=== PATIENT | male | born 1955 | race Caucasian/White ===

== ENCOUNTER 2016-12-05 19:52 | Emergency (ER) | payer SELFPAY ==
[~2016-12-05] VITALS: Ht 170.2 cm; Wt 82.0 kg
[2016-12-06] MEDS ORDERED: ENOXAPARIN 40MG/0.4ML SYR SUBCUT SCH
[2016-12-06] MEDS ORDERED: HYDROCODONE/ACETAMINOPHEN 5/325MG TABLET PO PRN
[2016-12-06] MEDS ORDERED: ONDANSETRON HCL 4MG/2ML VIAL IV PRN
[2016-12-06] MEDS ORDERED: ACETAMINOPHEN 325MG TABLET PO PRN
[2016-12-06] MEDS ORDERED: MORPHINE SULFATE 2 MG/ML CPJ (NOT FOR IM USE) IV PRN
[2016-12-06 00:10] LABS: CLARITY URINE CLEAR (CLEAR); COLOR URINE YELLOW (YELLOW); GLUCOSE URINE 3+ (NEGATIVE); KETONES URINE NEGATIVE (NEGATIVE); LEUKOCYTE ESTERASE URINE NEGATIVE (NEGATIVE); NITRITE URINE NEGATIVE (NEGATIVE); OCCULT BLOOD URINE NEGATIVE (NEGATIVE); PROTEIN URINE TRACE (NEGATIVE); SPECIFIC GRAVITY URINE 1.018 (1.005-1.030); UROBILINOGEN URINE 0.2 E.U./dL (0.2-1.0)
[2016-12-06 00:32] LABS: BASOPHILS % 0.9 % (0.0-2.0); EOSINOPHILS % 2.9 % (0.0-5.0); HEMOGLOBIN. 14.8 g/dL (14.0-18.0); LYMPHOCYTES % 24.1 % (20.0-50.0); MEAN CORPUSCULAR HEMOGLOBIN 28.5 pg (28.0-32.0); MEAN CORPUSCULAR VOLUME 84.7 fL (80.0-94.0); MEAN PLATELET VOLUME 7.6 fl (7.4-10.4); NEUTROPHILS % 68.1 % (40.0-76.0); PLATELET 200 x1000/uL (130-400); RED CELL DISTRIBUTION WIDTH 13.7 % (11.6-14.6)
[2016-12-06 00:38] LABS: *AMPHETAMINES SCREEN URINE NEGATIVE (NEGATIVE); *BARBITURATES SCREEN URINE NEGATIVE (NEGATIVE); *BENZODIAZEPINES SCREEN URINE NEGATIVE (NEGATIVE); *COCAINE SCREEN URINE NEGATIVE (NEGATIVE); CANNABINOID URINE SCREEN NEGATIVE (NEGATIVE); METHADONE URINE SCREEN NEGATIVE (NEGATIVE); OPIATES URINE SCREEN NEGATIVE (NEGATIVE); PHENCYCLIDINE URINE SCREEN NEGATIVE (NEGATIVE)
[2016-12-06 00:39] LABS: CHLORIDE 99 mEq/L (98-107)
[2016-12-06 00:47] LABS: CARBON DIOXIDE 24 mEq/L (21-32); ETHANOL BLOOD 182 mg/dL
[2016-12-06 06:18] VITALS: BP 123/86
[2016-12-06] MEDS ORDERED: AMLODIPINE 5MG TABLET PO SCH (09:00)
[2016-12-06] MEDS ORDERED: THIAMINE HCL 100MG TABLET PO SCH (09:00)
== END 2016-12-06 06:21 | disposition home or self-care (01) ==
LOC: ER 20:04 → SUPCPDRO 23:48 → ER 12-06 06:21
DX: F10.129 Alcohol abuse with intoxication, unspecified (principal); M25.561 Pain in right knee; R03.0 Elevated blood-pressure reading, without diagnosis of hypertension; R73.9 Hyperglycemia, unspecified
CPT/HCPCS: 36415; 73562; 80053; 80305; 81001; 83690; 85025; 99285; G0482; 81003

== ENCOUNTER 2017-08-29 21:23 | Emergency (ER) | payer SELFPAY ==
[~2017-08-29] VITALS: Ht 167.6 cm; Wt 73.0 kg
[2017-08-29] MEDS ORDERED: SODIUM CHLORIDE 0.9% 1,000 ML IV ONE (22:49)
[2017-08-30 00:02] LABS: BASOPHILS % 1.1 % (0.0-2.0); EOSINOPHILS % 4.1 % (0.0-5.0); HEMATOCRIT. 44.1 % (42.0-52.0); MEAN CORPUSCULAR HEMOGLOBIN 29.8 pg (28.0-32.0); MEAN CORPUSCULAR VOLUME 87.6 fL (80.0-94.0); MEAN PLATELET VOLUME 7.2 fl (7.4-10.4); MONOCYTES % 5.7 % (2.0-8.0); NEUTROPHILS % 60.1 % (40.0-76.0); PLATELET 225 x1000/uL (130-400); RED BLOOD CELL COUNT 5.04 mill/uL (4.7-6.1); RED CELL DISTRIBUTION WIDTH 13.4 % (11.6-14.6)
[2017-08-30 00:09] LABS: CHLORIDE 99 mEq/L (98-107)
[2017-08-30 00:13] LABS: ETHANOL BLOOD 199 mg/dL
[2017-08-30 00:16] LABS: AMMONIA 37 uMol/L (<32)
[2017-08-30 00:19] LABS: PROTHROMBIN TIME 10.1 sec (9.4-11.6)
[2017-08-30] MEDS ORDERED: SODIUM CHLORIDE 0.9% 1000ML BAG (SEPSIS BOLUS) IV NR (00:30)
[2017-08-30] MEDS ORDERED: INSULIN REGULAR (HUMULIN R) 300UNITS/3ML IV NR (00:30)
[2017-08-30 06:10] VITALS: BP 127/70
== END 2017-08-30 06:10 | disposition home or self-care (01) ==
LOC: ER 21:36
DX: T51.0X1A Toxic effect of ethanol, accidental (unintentional), initial encounter (principal); R73.9 Hyperglycemia, unspecified; R51 Headache; R10.9 Unspecified abdominal pain; F10.129 Alcohol abuse with intoxication, unspecified; R07.9 Chest pain, unspecified; Z91.14 Patient's other noncompliance with medication regimen; Y92.89 Other specified places as the place of occurrence of the external cause
CPT/HCPCS: 36415; 70450; 74176; 80053; 82010; 82140; 83605; 83690; 83880; 84443; 84484; 85025; 85610; 93005; 96361; 96374; 99285; G0482; J1815; J7030

== ENCOUNTER 2018-09-01 17:21 | Inpatient (IN) | payer MEDICAID ==
[~2018-09-01] VITALS: Ht 170.2 cm; Wt 89.8 kg
[2018-09-01 19:00] LABS: CLARITY URINE CLEAR (CLEAR); COLOR URINE YELLOW (YELLOW); KETONES URINE NEGATIVE (NEGATIVE); LEUKOCYTE ESTERASE URINE NEGATIVE (NEGATIVE); NITRITE URINE NEGATIVE (NEGATIVE); OCCULT BLOOD URINE 2+ (NEGATIVE); PROTEIN URINE 3+ (NEGATIVE); SPECIFIC GRAVITY URINE 1.013 (1.005-1.030); UROBILINOGEN URINE 0.2 E.U./dL (0.2-1.0)
[2018-09-01] MEDS ORDERED: FUROSEMIDE 40MG/4ML VIAL IV ONE (19:00)
[2018-09-01] MEDS ORDERED: ASPIRIN 81MG TABLET PO ONE (19:00)
[2018-09-01 19:15] LABS: EOSINOPHILS % 5.7 % (0.0-5.0); HEMATOCRIT. 44.1 % (42.0-52.0); HEMOGLOBIN. 14.7 g/dL (14.0-18.0); MEAN CORPUSCULAR HEMOGLOBIN 30.4 pg (28.0-32.0); MEAN CORPUSCULAR VOLUME 91.1 fL (80.0-94.0); MEAN PLATELET VOLUME 7.4 fl (7.4-10.4); MONOCYTES % 7.2 % (2.0-8.0); NEUTROPHILS % 68.1 % (40.0-76.0); PLATELET 208 x1000/uL (130-400); RED BLOOD CELL COUNT 4.84 mill/uL (4.7-6.1); RED CELL DISTRIBUTION WIDTH 14.2 % (11.6-14.6)
[2018-09-01 19:19] LABS: CHLORIDE 107 mEq/L (98-107)
[2018-09-01 19:23] LABS: ETHANOL BLOOD < 10 mg/dL
[2018-09-01 19:36] LABS: PARTIAL THROMBOPLASTIN TIME 29.7 sec (23.4-31.0); PROTHROMBIN TIME 10.8 sec (9.6-11.0)
[2018-09-01] MEDS ORDERED: HYDRALAZINE HCL 50MG TABLET PO NR (22:00)
[2018-09-01] MEDS ORDERED: CLONIDINE 0.1MG TABLET PO PRN (22:15)
[2018-09-01] MEDS ORDERED: MORPHINE SULFATE 2 MG/ML CPJ (NOT FOR IM USE) IV PRN (22:15)
[2018-09-01] MEDS ORDERED: GUAIFENESIN 200MG/10ML SUGAR FREE UDC PO PRN (22:15)
[2018-09-01] MEDS ORDERED: ONDANSETRON HCL 4MG/2ML INJ IV PRN (22:15)
[2018-09-01] MEDS ORDERED: DOCUSATE SODIUM 100MG CAPSULE PO PRN (22:15)
[2018-09-01] MEDS ORDERED: ACETAMINOPHEN 325MG TABLET PO PRN (22:15)
[2018-09-01] MEDS ORDERED: HYDROCODONE/ACETAMINOPHEN 5/325MG TABLET PO PRN (22:15)
[2018-09-01 23:00] VITALS: BP 183/101
[2018-09-01] MEDS: FUROSEMIDE 40MG/4ML VIAL IV SCH (23:40)
[2018-09-01] MEDS: LISINOPRIL 10MG TABLET PO SCH (23:41)
[2018-09-01] MEDS: AMLODIPINE 10MG TABLET PO SCH (23:41)
[2018-09-02] VITALS: BP 168/102
[2018-09-02 04:00] VITALS: BP 138/77
[2018-09-02 06:23] LABS: BASOPHILS % 1.9 % (0.0-2.0); EOSINOPHILS % 8.1 % (0.0-5.0); HEMATOCRIT. 40.6 % (42.0-52.0); HEMOGLOBIN. 13.5 g/dL (14.0-18.0); LYMPHOCYTES % 18.7 % (20.0-50.0); MEAN CORPUSCULAR HEMOGLOBIN 29.9 pg (28.0-32.0); MEAN CORPUSCULAR VOLUME 90.1 fL (80.0-94.0); MEAN PLATELET VOLUME 7.3 fl (7.4-10.4); MONOCYTES % 8.4 % (2.0-8.0); NEUTROPHILS % 62.9 % (40.0-76.0); PLATELET 211 x1000/uL (130-400); RED BLOOD CELL COUNT 4.51 mill/uL (4.7-6.1); RED CELL DISTRIBUTION WIDTH 14.6 % (11.6-14.6)
[2018-09-02 06:42] LABS: CHLORIDE 108 mEq/L (98-107)
[2018-09-02 06:54] LABS: HDL CHOLESTEROL 57 mg/dL (40-59)
[2018-09-02 06:55] LABS: LDL CHOLESTEROL 46 mg/dL (5-100)
[2018-09-02] MEDS: BLOOD SUGAR DIAGNOSTIC STRIP TEST SCH ×4 (07:37→20:41)
[2018-09-02 08:00] VITALS: BP 168/99
[2018-09-02] MEDS: FUROSEMIDE 40MG/4ML VIAL IV SCH ×2 (09:04→16:53)
[2018-09-02] MEDS: AMLODIPINE 10MG TABLET PO SCH (09:05)
[2018-09-02] MEDS: ASPIRIN 81MG EC TABLET PO SCH (09:05)
[2018-09-02] MEDS: LISINOPRIL 10MG TABLET PO SCH (09:05)
[2018-09-02] MEDS: ENOXAPARIN 40MG/0.4ML SYR SUBCUT SCH (09:06)
[2018-09-02 12:00] VITALS: BP 132/73
[2018-09-02] MEDS: POTASSIUM CHLORIDE 20MEQ TABLET SR PO SCH ×2 (12:43→20:20)
[2018-09-02 16:00] VITALS: BP 154/99
[2018-09-02 20:00] VITALS: BP 135/85
[2018-09-02] MEDS: CARVEDILOL 6.25 MG TABLET PO SCH (20:19)
[2018-09-03] VITALS: BP 130/83
[2018-09-03 04:00] VITALS: BP 153/96
[2018-09-03] MEDS: BLOOD SUGAR DIAGNOSTIC STRIP TEST SCH ×4 (06:50→20:47)
[2018-09-03 07:39] VITALS: BP 156/101
[2018-09-03] MEDS: FUROSEMIDE 40MG/4ML VIAL IV SCH ×2 (09:11→17:26)
[2018-09-03] MEDS: POTASSIUM CHLORIDE 20MEQ TABLET SR PO SCH ×2 (09:11→17:26)
[2018-09-03] MEDS: LISINOPRIL 10MG TABLET PO SCH (09:11)
[2018-09-03] MEDS: ASPIRIN 81MG EC TABLET PO SCH (09:12)
[2018-09-03] MEDS: ENOXAPARIN 40MG/0.4ML SYR SUBCUT SCH (09:12)
[2018-09-03] MEDS: CARVEDILOL 6.25 MG TABLET PO SCH ×2 (09:12→20:51)
[2018-09-03] MEDS: AMLODIPINE 10MG TABLET PO SCH (09:12)
[2018-09-03 11:52] VITALS: BP 131/86
[2018-09-03] MEDS ORDERED: DEXTROSE 50% WATER 50ML SYRINGE IV PRN (12:00)
[2018-09-03] MEDS ORDERED: BLOOD SUGAR DIAGNOSTIC STRIP TEST SCH (12:10)
[2018-09-03] MEDS: INSULIN LISPRO 100 UNITS/ML SUBCUT SCH ×3 (12:47→20:53)
[2018-09-03 16:00] VITALS: BP 142/95
[2018-09-03 20:00] VITALS: BP 150/92
[2018-09-04] VITALS: BP 130/88
[2018-09-04 04:00] VITALS: BP_SYST 131; BP_SYST 151; BP_DIAS 85; BP_DIAS 92
[2018-09-04] MEDS: BLOOD SUGAR DIAGNOSTIC STRIP TEST SCH ×2 (06:14→12:10)
[2018-09-04] MEDS: INSULIN LISPRO 100 UNITS/ML SUBCUT SCH ×2 (06:14→12:15)
[2018-09-04 07:54] LABS: BASOPHILS % 1.8 % (0.0-2.0); EOSINOPHILS % 9.6 % (0.0-5.0); HEMATOCRIT. 41.2 % (42.0-52.0); HEMOGLOBIN. 14.1 g/dL (14.0-18.0); LYMPHOCYTES % 20.3 % (20.0-50.0); MEAN CORPUSCULAR HEMOGLOBIN 30.7 pg (28.0-32.0); MEAN CORPUSCULAR VOLUME 89.4 fL (80.0-94.0); MEAN PLATELET VOLUME 7.4 fl (7.4-10.4); MONOCYTES % 7.6 % (2.0-8.0); NEUTROPHILS % 60.7 % (40.0-76.0); PLATELET 215 x1000/uL (130-400); RED BLOOD CELL COUNT 4.61 mill/uL (4.7-6.1); RED CELL DISTRIBUTION WIDTH 14.3 % (11.6-14.6)
[2018-09-04 08:00] VITALS: BP 158/93
[2018-09-04] MEDS: ENOXAPARIN 40MG/0.4ML SYR SUBCUT SCH (08:56)
[2018-09-04] MEDS: CARVEDILOL 6.25 MG TABLET PO SCH (08:56)
[2018-09-04] MEDS: LISINOPRIL 10MG TABLET PO SCH (08:56)
[2018-09-04] MEDS: POTASSIUM CHLORIDE 20MEQ TABLET SR PO SCH (08:56)
[2018-09-04] MEDS: FUROSEMIDE 40MG/4ML VIAL IV SCH (08:56)
[2018-09-04 09:01] LABS: CHLORIDE 105 mEq/L (98-107)
[2018-09-04] MEDS: AMLODIPINE 10MG TABLET PO SCH (09:01)
[2018-09-04] MEDS: ASPIRIN 81MG EC TABLET PO SCH (09:01)
[2018-09-04 12:00] VITALS: BP 132/88
[2018-09-04 12:40] VITALS: BP 132/88
[2018-09-04 20:00] VITALS: BP 99/68
== END 2018-09-04 13:45 | disposition home or self-care (01) | DRG 194 ==
LOC: ER 17:21 → 8WST 21:01 → EDBEDREQ 21:07 → EDBEDREQTM 21:07 → ENRESERV 21:26 → SUPCPDRO 22:00
PROVIDERS: ADMIT Hospitalist; ATTEND Hospitalist
DX: I11.0 Hypertensive heart disease with heart failure (principal); E44.0 Moderate protein-calorie malnutrition; E83.51 Hypocalcemia; E11.9 Type 2 diabetes mellitus without complications; I50.23 Acute on chronic systolic (congestive) heart failure; E78.5 Hyperlipidemia, unspecified; I25.10 Atherosclerotic heart disease of native coronary artery without angina pectoris; Z79.84 Long term (current) use of oral hypoglycemic drugs
CPT/HCPCS: 36415; 71045; 80061; 80320; 82962; 83605; 83880; 84484; 93005; 93306; 93970; 96374; 99285; J1650; J1815; J1940; G0480

== ENCOUNTER 2018-09-12 15:08 | Emergency (ER) | payer MEDICAID ==
[~2018-09-12] VITALS: Ht 170.2 cm; Wt 83.0 kg
[2018-09-12] MEDS ORDERED: BUMETANIDE 1MG/4ML VIAL IV ONE (16:30)
[2018-09-12 16:52] LABS: BASOPHILS % 1.4 % (0.0-2.0); CHLORIDE 110 mEq/L (98-107); EOSINOPHILS % 7.5 % (0.0-5.0); HEMATOCRIT. 39.8 % (42.0-52.0); HEMOGLOBIN. 13.6 g/dL (14.0-18.0); LYMPHOCYTES % 20.6 % (20.0-50.0); MEAN CORPUSCULAR HEMOGLOBIN 30.7 pg (28.0-32.0); MEAN CORPUSCULAR VOLUME 90.1 fL (80.0-94.0); MEAN PLATELET VOLUME 8.2 fl (7.4-10.4); MONOCYTES % 7.4 % (2.0-8.0); NEUTROPHILS % 63.1 % (40.0-76.0); PLATELET 191 x1000/uL (130-400); RED BLOOD CELL COUNT 4.41 mill/uL (4.7-6.1); RED CELL DISTRIBUTION WIDTH 14.3 % (11.6-14.6)
[2018-09-12 22:05] VITALS: BP 136/76
== END 2018-09-12 22:07 | disposition home or self-care (01) ==
LOC: ER 15:28
DX: I50.9 Heart failure, unspecified (principal); D64.9 Anemia, unspecified; I45.10 Unspecified right bundle-branch block; E11.9 Type 2 diabetes mellitus without complications
CPT/HCPCS: 36415; 71045; 80053; 83880; 84484; 85025; 93005; 96374; 99284; J3490

== ENCOUNTER 2018-12-13 07:03 | Emergency (ER) | payer MEDICAID ==
[~2018-12-13] VITALS: Ht 170.2 cm; Wt 81.1 kg
[2018-12-13] MEDS ORDERED: MORPHINE SULFATE 4 MG/ML CPJ (NOT FOR IM USE) IV STA (08:30)
[2018-12-13] MEDS ORDERED: LABETALOL HCL 20MG/4ML CARPUJECT IV ONE (08:30)
[2018-12-13] MEDS ORDERED: LABETALOL 5MG/ML SYR 20 MG/4 ML SYRINGE IV ONE (09:15)
[2018-12-13 09:37] LABS: CHLORIDE 106 mEq/L (98-107)
[2018-12-13 09:39] LABS: BASOPHILS % 1.1 % (0.0-2.0); EOSINOPHILS % 3.5 % (0.0-5.0); HEMATOCRIT. 45.3 % (42.0-52.0); HEMOGLOBIN. 15.9 g/dL (14.0-18.0); LYMPHOCYTES % 11.3 % (20.0-50.0); MEAN CORPUSCULAR HEMOGLOBIN 31.8 pg (28.0-32.0); MEAN CORPUSCULAR VOLUME 90.6 fL (80.0-94.0); MEAN PLATELET VOLUME 7.1 fl (7.4-10.4); MONOCYTES % 4.6 % (2.0-8.0); NEUTROPHILS % 79.5 % (40.0-76.0); PLATELET 258 x1000/uL (130-400); RED CELL DISTRIBUTION WIDTH 14.1 % (11.6-14.6)
[2018-12-13 09:41] LABS: PARTIAL THROMBOPLASTIN TIME 29.4 sec (23.4-31.0); PROTHROMBIN TIME 10.1 sec (9.6-11.0)
[2018-12-13 09:44] LABS: ETHANOL BLOOD < 10 mg/dL
[2018-12-13 10:12] LABS: *AMPHETAMINES SCREEN URINE PRESUMTIVE POSITIVE (NEGATIVE); *BARBITURATES SCREEN URINE NEGATIVE (NEGATIVE); *BENZODIAZEPINES SCREEN URINE NEGATIVE (NEGATIVE); *COCAINE SCREEN URINE NEGATIVE (NEGATIVE); CANNABINOID URINE SCREEN NEGATIVE (NEGATIVE); METHADONE URINE SCREEN NEGATIVE (NEGATIVE); OPIATES URINE SCREEN NEGATIVE (NEGATIVE); PHENCYCLIDINE URINE SCREEN NEGATIVE (NEGATIVE)
[2018-12-13 12:46] VITALS: BP 131/89
== END 2018-12-13 13:14 | disposition home or self-care (01) ==
LOC: ER 07:39 → EDBEDREQ 10:00 → ER 13:14 → CANBEDREQ 18:46
DX: R51 Headache (principal); R79.89 Other specified abnormal findings of blood chemistry; I10 Essential (primary) hypertension; E11.9 Type 2 diabetes mellitus without complications; F15.10 Other stimulant abuse, uncomplicated
CPT/HCPCS: 36415; 70450; 71045; 80053; 80305; 80320; 83880; 84484; 85025; 85610; 85730; 93005; 96374; 96375; 99284; J2270; J3490; G0480

== ENCOUNTER 2019-01-23 16:23 | Inpatient (IN) | payer MEDICAID ==
[~2019-01-23] VITALS: Ht 170.2 cm; Wt 82.6 kg
[2019-01-23 17:33] LABS: BASOPHILS % 0.8 % (0.0-2.0); EOSINOPHILS % 7.1 % (0.0-5.0); HEMATOCRIT. 44.4 % (42.0-52.0); HEMOGLOBIN. 15.1 g/dL (14.0-18.0); LYMPHOCYTES % 13.9 % (20.0-50.0); MEAN CORPUSCULAR HEMOGLOBIN 30.9 pg (28.0-32.0); MEAN CORPUSCULAR VOLUME 90.8 fL (80.0-94.0); MEAN PLATELET VOLUME 7.6 fl (7.4-10.4); MONOCYTES % 5.3 % (2.0-8.0); NEUTROPHILS % 72.9 % (40.0-76.0); PLATELET 270 x1000/uL (130-400); RED CELL DISTRIBUTION WIDTH 13.4 % (11.6-14.6)
[2019-01-23 17:40] LABS: CHLORIDE 104 mEq/L (98-107)
[2019-01-23] MEDS ORDERED: IOHEXOL-350 100 ML BOTTLE ONE (19:16)
[2019-01-23] MEDS ORDERED: HEPARIN 5000 UNITS/ML VIAL IV ONE (20:00)
[2019-01-23] MEDS ORDERED: HEPARIN 25,000 UNITS PREMIX 500 ML IV ONE (20:00)
[2019-01-23] MEDS ORDERED: ASPIRIN 81MG TABLET PO ONE (20:00)
[2019-01-23 20:52] LABS: PARTIAL THROMBOPLASTIN TIME 27.5 sec (23.4-31.0); PROTHROMBIN TIME 10.4 sec (9.6-11.0)
[2019-01-23] MEDS ORDERED: HEPARIN BOLUS PRN aPTT <36 IV (23:30)
[2019-01-23] MEDS ORDERED: HEPARIN BOLUS PRN aPTT 37-44 IV (23:30)
[2019-01-24] VITALS (12 sets, daily range): BP systolic 124–172; BP diastolic 69–126
[2019-01-24] MEDS ORDERED: ONDANSETRON HCL 4MG/2ML INJ IV PRN (01:15)
[2019-01-24] MEDS ORDERED: DEXTROSE 50% WATER 50ML SYRINGE IV PRN (01:15)
[2019-01-24] MEDS ORDERED: HYDRALAZINE 20MG/ML VIAL IV PRN (01:15)
[2019-01-24] MEDS ORDERED: ACETAMINOPHEN 325MG TABLET PO PRN (01:15)
[2019-01-24] MEDS ORDERED: ZOLPIDEM TARTRATE 5MG TABLET PO PRN (01:15)
[2019-01-24] MEDS ORDERED: HYDROCODONE/ACETAMINOPHEN 5/325MG TABLET PO PRN (01:15)
[2019-01-24] MEDS ORDERED: HEPARIN 5000 UNITS/ML VIAL IV PRN ×2 (02:00)
[2019-01-24] MEDS ORDERED: HEPARIN 5000 UNITS/ML VIAL IV SCH (02:00)
[2019-01-24] MEDS ORDERED: HEPARIN 25,000 UNITS PREMIX 500 ML IV PRN (02:00)
[2019-01-24] MEDS ORDERED: BUME2TAB7 MT (03:45)
[2019-01-24] MEDS ORDERED: CARV6.2548 MT (03:48)
[2019-01-24] MEDS ORDERED: LISI-604 MT (03:48)
[2019-01-24] MEDS ORDERED: ENAL5TAB MT (03:48)
[2019-01-24] MEDS ORDERED: ASPI-1158 MT (03:50)
[2019-01-24] MEDS ORDERED: METF-416 MT (03:50)
[2019-01-24] MEDS ORDERED: CARV3.1242 MT (04:15)
[2019-01-24 05:51] LABS: CHLORIDE 107 mEq/L (98-107)
[2019-01-24 05:54] LABS: HEMATOCRIT 37.3 % (42.0-52.0); HEMOGLOBIN 12.9 g/dL (14.0-18.0); MEAN CORPUSCULAR HEMOGLOBIN 31.2 pg (28.0-32.0); PLATELET 240 x1000/uL (130-400); RED BLOOD CELL COUNT 4.14 mill/uL (4.7-6.1); RED CELL DISTRIBUTION WIDTH 13.1 % (11.6-14.6)
[2019-01-24 05:57] LABS: CREATINE KINASE 140 IU/L (39-308); LDL CHOLESTEROL 64 mg/dL (5-100)
[2019-01-24] MEDS: BLOOD SUGAR DIAGNOSTIC STRIP TEST SCH ×4 (05:57→21:00)
[2019-01-24] MEDS: INSULIN LISPRO 100 UNITS/ML SUBCUT SCH ×4 (05:57→21:34)
[2019-01-24 05:59] LABS: HDL CHOLESTEROL 54 mg/dL (40-59)
[2019-01-24] MEDS ORDERED: POTASSIUM CHLORIDE 20MEQ TABLET SR PO NR ×2 (07:15→09:00)
[2019-01-24] MEDS ORDERED: HEPARIN 25,000 UNITS PREMIX 500 ML IV SCH ×2 (08:00)
[2019-01-24] MEDS ORDERED: HEPARIN BOLUS PRN aPTT 37-44 IV (08:00)
[2019-01-24] MEDS ORDERED: HEPARIN BOLUS PRN aPTT <36 IV (08:00)
[2019-01-24] MEDS ORDERED: INSULIN LISPRO 100 UNITS/ML SUBCUT SCH (08:20)
[2019-01-24] MEDS ORDERED: BLOOD SUGAR DIAGNOSTIC STRIP TEST SCH (09:00)
[2019-01-24] MEDS: FUROSEMIDE 40MG/4ML VIAL IVP SCH ×2 (09:24→21:21)
[2019-01-24] MEDS: LISINOPRIL 10MG TABLET PO SCH (09:25)
[2019-01-24] MEDS ORDERED: MAGNESIUM 4 G PREMIX 100 ML IV NR (10:00)
[2019-01-24 10:05] LABS: PHOSPHORUS 3.6 mg/dL (2.5-4.9)
[2019-01-24] MEDS: ENOXAPARIN 40MG/0.4ML SYR SUBCUT SCH (12:36)
[2019-01-24 13:44] LABS: BG BASE EXCESS -0.7 mmol/L (-2.0-2.0); BG CARBOXYHEMOGLOBIN 1.1 % (0.5-1.5); BG DEOXYHEMOGLOBIN 5.5 % (0.0-5.0); BG FRACTION INSPIRED OXYGEN 21; BG HCO3 ACT 23.1 mmol/L (22.0-26.0); BG METHEMOGLOBIN 0.2 % (0.0-1.5); BG OXYGEN SATURATION 94.4 % (92.0-98.5); BG OXYHEMOGLOBIN 93.2 % (94.0-97.0); BG PCO2 35.6 mmHg (35.0-45.0); BG PO2 74.9 mmHg (75.0-100.0); BG SAMPLE SITE LEFT RADIAL; BG TOTAL HEMOGLOBIN 14.6 g/dL (12.0-18.0); BG VENT MODE ROOM AIR
[2019-01-24 17:13] LABS: CREATINE KINASE MB FRACTION 3.2 ng/mL (0.5-3.6)
[2019-01-24] MEDS: CLONIDINE 0.1MG TABLET PO PRN (18:08)
[2019-01-24] MEDS: CARVEDILOL 3.125 MG TABLET PO SCH (21:22)
[2019-01-24] MEDS: INSULIN GLARGINE UD 100 UNITS/ML SYR SUBCUT SCH (21:35)
[2019-01-25] VITALS (11 sets, daily range): BP systolic 101–166; BP diastolic 65–106
[2019-01-25 00:20] LABS: *AMPHETAMINES SCREEN URINE NEGATIVE (NEGATIVE); *BARBITURATES SCREEN URINE NEGATIVE (NEGATIVE); *BENZODIAZEPINES SCREEN URINE NEGATIVE (NEGATIVE); *COCAINE SCREEN URINE NEGATIVE (NEGATIVE)
[2019-01-25 00:22] LABS: CANNABINOID URINE SCREEN NEGATIVE (NEGATIVE); METHADONE URINE SCREEN NEGATIVE (NEGATIVE); OPIATES URINE SCREEN NEGATIVE (NEGATIVE); PHENCYCLIDINE URINE SCREEN NEGATIVE (NEGATIVE)
[2019-01-25] MEDS: CLONIDINE 0.1MG TABLET PO PRN (04:19)
[2019-01-25 06:05] LABS: BASOPHILS % 1.2 % (0.0-2.0); EOSINOPHILS % 7.4 % (0.0-5.0); HEMATOCRIT. 36.6 % (42.0-52.0); HEMOGLOBIN. 12.5 g/dL (14.0-18.0); MEAN CORPUSCULAR VOLUME 90.7 fL (80.0-94.0); MEAN PLATELET VOLUME 7.4 fl (7.4-10.4); MONOCYTES % 7.8 % (2.0-8.0); NEUTROPHILS % 69.6 % (40.0-76.0); PLATELET 235 x1000/uL (130-400); RED BLOOD CELL COUNT 4.04 mill/uL (4.7-6.1)
[2019-01-25] MEDS: BLOOD SUGAR DIAGNOSTIC STRIP TEST SCH ×4 (06:50→20:21)
[2019-01-25] MEDS: INSULIN LISPRO 100 UNITS/ML SUBCUT SCH ×4 (06:57→21:25)
[2019-01-25] MEDS: FUROSEMIDE 40MG/4ML VIAL IVP SCH (09:45)
[2019-01-25] MEDS: LISINOPRIL 10MG TABLET PO SCH (09:45)
[2019-01-25] MEDS: CARVEDILOL 3.125 MG TABLET PO SCH ×2 (09:45→21:28)
[2019-01-25] MEDS ORDERED: SODIUM BICARBONATE 4% (2.4MEQ) 5ML VIAL IV ONE (11:29)
[2019-01-25] MEDS: ENOXAPARIN 40MG/0.4ML SYR SUBCUT SCH (12:00)
[2019-01-25] MEDS ORDERED: REGADENOSON 0.4 MG/5 ML IV NR (14:45)
[2019-01-25] MEDS ORDERED: IPRATROPIUM/ALBUTEROL 0.5-3(2.5)MG/3ML NEB HHN PRN (16:30)
[2019-01-25] MEDS: INSULIN GLARGINE UD 100 UNITS/ML SYR SUBCUT SCH (21:24)
[2019-01-26] VITALS (9 sets, daily range): BP systolic 100–170; BP diastolic 47–109
[2019-01-26] MEDS: INSULIN LISPRO 100 UNITS/ML SUBCUT SCH ×2 (06:02→11:31)
[2019-01-26] MEDS: BLOOD SUGAR DIAGNOSTIC STRIP TEST SCH ×2 (06:02→11:23)
[2019-01-26 07:38] LABS: BASOPHILS % 1.1 % (0.0-2.0); EOSINOPHILS % 6.8 % (0.0-5.0); HEMATOCRIT. 38.7 % (42.0-52.0); HEMOGLOBIN. 13.2 g/dL (14.0-18.0); LYMPHOCYTES % 14.1 % (20.0-50.0); MEAN CORPUSCULAR HEMOGLOBIN 30.8 pg (28.0-32.0); MEAN CORPUSCULAR VOLUME 90.5 fL (80.0-94.0); MEAN PLATELET VOLUME 7.7 fl (7.4-10.4); PLATELET 230 x1000/uL (130-400); RED BLOOD CELL COUNT 4.28 mill/uL (4.7-6.1); RED CELL DISTRIBUTION WIDTH 13.3 % (11.6-14.6)
[2019-01-26 07:40] LABS: PHOSPHORUS 4.8 mg/dL (2.5-4.9)
[2019-01-26] MEDS: CARVEDILOL 3.125 MG TABLET PO SCH (08:42)
[2019-01-26] MEDS: LISINOPRIL 10MG TABLET PO SCH (08:42)
[2019-01-26] MEDS ORDERED: FUROSEMIDE 40MG/4ML VIAL IVP SCH (09:00)
[2019-01-26] MEDS ORDERED: REGADENOSON 0.4 MG/5 ML IV ONE (09:02)
[2019-01-26] MEDS: ENOXAPARIN 40MG/0.4ML SYR SUBCUT SCH (11:31)
[2019-01-26] MEDS ORDERED: FURO40TA5 MT (15:07)
[2019-02-02 15:10] LABS: HISTOPLASMA ABS QT DID Negative (Neg:<1:1)
== END 2019-01-26 16:24 | disposition home or self-care (01) | DRG 133 ==
LOC: ER 16:23 → 3WST 22:07 → EDBEDREQ 22:09 → EDBEDREQTM 22:09 → ENRESERV 22:13
PROVIDERS: ADMIT Internal Medicine; ATTEND Internal Medicine
PROC: 0W993ZZ Drainage of Right Pleural Cavity, Percutaneous Approach (ICD-10-PCS; principal; 2019-01-25)
DX: J96.00 Acute respiratory failure, unspecified whether with hypoxia or hypercapnia (principal); I50.43 Acute on chronic combined systolic (congestive) and diastolic (congestive) heart failure; E11.22 Type 2 diabetes mellitus with diabetic chronic kidney disease; N17.9 Acute kidney failure, unspecified; J90 Pleural effusion, not elsewhere classified; E83.42 Hypomagnesemia; M41.9 Scoliosis, unspecified; N18.3 Chronic kidney disease, stage 3 (moderate); K76.0 Fatty (change of) liver, not elsewhere classified; D64.9 Anemia, unspecified; E87.6 Hypokalemia; I13.0 Hypertensive heart and chronic kidney disease with heart failure and stage 1 through stage 4 chronic kidney disease, or unspecified chronic kidney disease; E26.1 Secondary hyperaldosteronism; E11.65 Type 2 diabetes mellitus with hyperglycemia; E78.5 Hyperlipidemia, unspecified; I45.10 Unspecified right bundle-branch block; M51.34 Other intervertebral disc degeneration, thoracic region; Z79.84 Long term (current) use of oral hypoglycemic drugs; Z82.49 Family history of ischemic heart disease and other diseases of the circulatory system; Z83.3 Family history of diabetes mellitus; Z86.711 Personal history of pulmonary embolism; Z87.891 Personal history of nicotine dependence
CPT/HCPCS: 32555; 36415; 36600; 71045; 71275; 76770; 78452; 80048; 80061; 80305; 82375; 82550; 82553; 82805; 82962; 83036; 83615; 83735; 83880; 84100; 84443; 84484; 85027; 85379; 86698; 87102; 87116; 88108; 88312; 93005; 93017; 93306; 93970; 99285; A9500; J0360; J1644; J1650; J1815; J1940; J2785; J3475; J3490; Q9967

== ENCOUNTER 2019-05-31 17:56 | Inpatient (IN) | payer MEDICAID ==
[~2019-05-31] VITALS: Ht 170.2 cm; Wt 80.3 kg
[~2019-05-31 17:56] MED LIST: ASPI-1158 MT; BUME2TAB7 MT; CARV6.2548 MT; FURO40TA5 MT; LISI-604 MT; METF-416 MT
[2019-05-31] MEDS ORDERED: ASPIRIN 81MG TABLET PO NR (22:45)
[2019-05-31 22:49] LABS: BASOPHILS % 0.8 % (0.0-2.0); EOSINOPHILS % 6.4 % (0.0-5.0); HEMATOCRIT. 46.1 % (42.0-52.0); HEMOGLOBIN. 15.7 g/dL (14.0-18.0); LYMPHOCYTES % 17.6 % (20.0-50.0); MEAN CORPUSCULAR HEMOGLOBIN 30.3 pg (28.0-32.0); MEAN CORPUSCULAR VOLUME 89.3 fL (80.0-94.0); MEAN PLATELET VOLUME 7.4 fl (7.4-10.4); MONOCYTES % 7.3 % (2.0-8.0); NEUTROPHILS % 67.9 % (40.0-76.0); PLATELET 273 x1000/uL (130-400); RED BLOOD CELL COUNT 5.16 mill/uL (4.7-6.1); RED CELL DISTRIBUTION WIDTH 14.6 % (11.6-14.6)
[2019-05-31] MEDS ORDERED: BUMETANIDE 1MG/4ML VIAL IV ONE (23:30)
[2019-05-31] MEDS ORDERED: CLONIDINE 0.2MG TABLET PO ONE (23:30)
[2019-06-01 00:10] LABS: CHLORIDE 108 mEq/L (98-107)
[2019-06-01 08:57] VITALS: BP 173/104
[2019-06-01 09:00] VITALS: BP 173/104
[2019-06-01] MEDS ORDERED: ONDANSETRON HCL 4MG/2ML INJ IV PRN (09:45)
[2019-06-01] MEDS ORDERED: CLONIDINE 0.1MG TABLET PO PRN (09:45)
[2019-06-01] MEDS ORDERED: IPRATROPIUM/ALBUTEROL 0.5-3(2.5)MG/3ML NEB HHN PRN (09:45)
[2019-06-01] MEDS ORDERED: ACETAMINOPHEN 325MG TABLET PO PRN (09:45)
[2019-06-01] MEDS ORDERED: DIPHENHYDRAMINE 50MG/ML VIAL IV PRN (09:45)
[2019-06-01] MEDS ORDERED: DOCUSATE SODIUM 100MG CAPSULE PO PRN (09:45)
[2019-06-01 12:00] VITALS: BP 158/97
[2019-06-01] MEDS: FUROSEMIDE 40MG/4ML VIAL IV SCH (12:11)
[2019-06-01] MEDS: ENOXAPARIN 40MG/0.4ML SYR SUBCUT SCH (12:12)
[2019-06-01] MEDS ORDERED: DEXTROSE 50% WATER 50ML SYRINGE IV PRN (13:45)
[2019-06-01] MEDS: AMLODIPINE 5MG TABLET PO SCH (14:50)
[2019-06-01 16:00] VITALS: BP 150/88
[2019-06-01] MEDS: INSULIN LISPRO 100 UNITS/ML SUBCUT SCH ×2 (17:17→21:35)
[2019-06-01] MEDS: BLOOD SUGAR DIAGNOSTIC STRIP TEST SCH ×2 (17:18→21:34)
[2019-06-01 19:06] LABS: CLARITY URINE CLEAR (CLEAR); COLOR URINE YELLOW (YELLOW); KETONES URINE NEGATIVE (NEGATIVE); LEUKOCYTE ESTERASE URINE NEGATIVE (NEGATIVE); NITRITE URINE NEGATIVE (NEGATIVE); OCCULT BLOOD URINE TRACE (NEGATIVE); PH URINE 5.5 (4.5-8.0); PROTEIN URINE 2+ (NEGATIVE); SPECIFIC GRAVITY URINE 1.009 (1.005-1.030); UROBILINOGEN URINE 0.2 E.U./dL (0.2-1.0)
[2019-06-01 19:26] LABS: *AMPHETAMINES SCREEN URINE NEGATIVE (NEGATIVE); *BARBITURATES SCREEN URINE NEGATIVE (NEGATIVE)
[2019-06-01 19:27] LABS: *BENZODIAZEPINES SCREEN URINE NEGATIVE (NEGATIVE); *COCAINE SCREEN URINE NEGATIVE (NEGATIVE); CANNABINOID URINE SCREEN NEGATIVE (NEGATIVE); METHADONE URINE SCREEN NEGATIVE (NEGATIVE); OPIATES URINE SCREEN NEGATIVE (NEGATIVE); PHENCYCLIDINE URINE SCREEN NEGATIVE (NEGATIVE)
[2019-06-01 19:31] LABS: SODIUM URINE RANDOM 107 mEq/L
[2019-06-01 20:00] VITALS: BP 147/83
[2019-06-01] MEDS ORDERED: MAGNESIUM 1 G PREMIX 100 ML IV NR (20:00)
[2019-06-01 21:29] LABS: HEPATITIS B SURFACE ANTIGEN NEGATIVE
[2019-06-01] MEDS: CARVEDILOL 12.5MG TABLET PO SCH (21:33)
[2019-06-02] VITALS: BP 135/77
[2019-06-02 04:00] VITALS: BP 132/88
[2019-06-02] MEDS: BLOOD SUGAR DIAGNOSTIC STRIP TEST SCH ×4 (06:08→21:32)
[2019-06-02 07:01] LABS: CHLORIDE 108 mEq/L (98-107)
[2019-06-02 07:20] LABS: PHOSPHORUS 4.6 mg/dL (2.5-4.9)
[2019-06-02 07:21] LABS: HDL CHOLESTEROL 61 mg/dL (40-59)
[2019-06-02 07:22] LABS: LDL CHOLESTEROL 68 mg/dL (5-100)
[2019-06-02 07:43] LABS: BASOPHILS % 1.8 % (0.0-2.0); EOSINOPHILS % 6.5 % (0.0-5.0); HEMATOCRIT. 38.3 % (42.0-52.0); HEMOGLOBIN. 13.2 g/dL (14.0-18.0); LYMPHOCYTES % 19.7 % (20.0-50.0); MEAN CORPUSCULAR HEMOGLOBIN 30.6 pg (28.0-32.0); MEAN CORPUSCULAR VOLUME 88.7 fL (80.0-94.0); MEAN PLATELET VOLUME 7.6 fl (7.4-10.4); PLATELET 254 x1000/uL (130-400); RED BLOOD CELL COUNT 4.31 mill/uL (4.7-6.1); RED CELL DISTRIBUTION WIDTH 14.4 % (11.6-14.6)
[2019-06-02] MEDS: INSULIN LISPRO 100 UNITS/ML SUBCUT SCH ×4 (07:50→21:39)
[2019-06-02 08:00] VITALS: BP 141/83
[2019-06-02] MEDS: FUROSEMIDE 40MG/4ML VIAL IV SCH (08:47)
[2019-06-02] MEDS: ENOXAPARIN 40MG/0.4ML SYR SUBCUT SCH (08:47)
[2019-06-02] MEDS: AMLODIPINE 5MG TABLET PO SCH (08:48)
[2019-06-02] MEDS: CARVEDILOL 12.5MG TABLET PO SCH ×2 (08:49→21:32)
[2019-06-02 12:00] VITALS: BP 133/80
[2019-06-02 16:00] VITALS: BP 149/86
[2019-06-02 20:00] VITALS: BP 147/91
[2019-06-03] VITALS: BP 134/77
[2019-06-03 04:00] VITALS: BP 143/87
[2019-06-03] MEDS: BLOOD SUGAR DIAGNOSTIC STRIP TEST SCH ×2 (06:12→11:44)
[2019-06-03 06:43] LABS: BASOPHILS % 1.3 % (0.0-2.0); HEMATOCRIT. 38.7 % (42.0-52.0); MEAN CORPUSCULAR HEMOGLOBIN 29.8 pg (28.0-32.0); MEAN CORPUSCULAR VOLUME 88.6 fL (80.0-94.0); MEAN PLATELET VOLUME 7.4 fl (7.4-10.4); MONOCYTES % 7.8 % (2.0-8.0); NEUTROPHILS % 60.9 % (40.0-76.0); PLATELET 246 x1000/uL (130-400); RED BLOOD CELL COUNT 4.37 mill/uL (4.7-6.1)
[2019-06-03 07:07] LABS: PHOSPHORUS 4.3 mg/dL (2.5-4.9)
[2019-06-03] MEDS: INSULIN LISPRO 100 UNITS/ML SUBCUT SCH ×2 (07:50→13:07)
[2019-06-03 08:15] VITALS: BP 154/93
[2019-06-03] MEDS: CARVEDILOL 12.5MG TABLET PO SCH (08:48)
[2019-06-03] MEDS: FUROSEMIDE 40MG/4ML VIAL IV SCH (08:48)
[2019-06-03] MEDS: AMLODIPINE 5MG TABLET PO SCH (08:48)
[2019-06-03] MEDS: ENOXAPARIN 40MG/0.4ML SYR SUBCUT SCH (08:49)
[2019-06-03 11:53] VITALS: BP 149/91
[2019-06-03] MEDS ORDERED: AMLO10TA80 PO (15:22)
[2019-06-03] MEDS ORDERED: COR12 PO (15:22)
[2019-06-03 15:31] VITALS: BP 140/88
[2019-06-03 15:46] VITALS: BP 126/69
[2019-06-03] MEDS ORDERED: ATORVASTATIN CALCIUM 10MG TABLET PO SCH (21:00)
[2019-06-04 08:09] LABS: *CREATININE RANDOM URINE 32.8 mg/dL (Not Estab.); MICROALBUMIN RANDOM URINE 798.9 ug/mL (Not Estab.)
[2019-06-04] MEDS ORDERED: AMLODIPINE 10MG TABLET PO SCH (09:00)
== END 2019-06-03 17:00 | disposition home or self-care (01) | DRG 194 ==
LOC: ER 18:19 → 6WST 06-01 01:17 → EDBEDREQ 06-01 01:22 → ENRESERV 06-01 06:57
PROVIDERS: ADMIT Internal Medicine; ATTEND Internal Medicine
DX: I13.0 Hypertensive heart and chronic kidney disease with heart failure and stage 1 through stage 4 chronic kidney disease, or unspecified chronic kidney disease (principal); E11.22 Type 2 diabetes mellitus with diabetic chronic kidney disease; N17.9 Acute kidney failure, unspecified; N18.3 Chronic kidney disease, stage 3 (moderate); I08.1 Rheumatic disorders of both mitral and tricuspid valves; M94.0 Chondrocostal junction syndrome [Tietze]; I50.43 Acute on chronic combined systolic (congestive) and diastolic (congestive) heart failure; R07.89 Other chest pain; I25.10 Atherosclerotic heart disease of native coronary artery without angina pectoris; E78.5 Hyperlipidemia, unspecified; I25.2 Old myocardial infarction; Z79.82 Long term (current) use of aspirin; Z79.84 Long term (current) use of oral hypoglycemic drugs; Z95.5 Presence of coronary angioplasty implant and graft; Z79.899 Other long term (current) drug therapy
CPT/HCPCS: 36415; 71045; 76770; 80048; 80053; 80061; 80305; 81003; 82043; 82570; 82784; 82962; 83036; 83735; 83880; 84100; 84155; 84156; 84165; 84300; 84443; 84484; 85025; 86334; 86803; 87340; 93005; 93970; 99291; J1650; J1815; J1940; J3475; J3490

== ENCOUNTER 2019-11-22 19:38 | Inpatient (IN) | payer MEDICAID ==
[~2019-11-22] VITALS: Ht 170.2 cm; Wt 95.3 kg
[~2019-11-22 19:38] MED LIST changes: +AMLO10TA80 PO; -CARV6.2548 MT; +COR12 PO
[2019-11-22] MEDS ORDERED: NITROGLYCERIN OINT 1GM/INCH UDPKT TD ONE (20:00)
[2019-11-22] MEDS ORDERED: FUROSEMIDE 40MG/4ML VIAL IV ONE (20:00)
[2019-11-22] MEDS ORDERED: ASPIRIN 81MG TABLET PO ONE (20:00)
[2019-11-22 20:47] LABS: HEMATOCRIT. 30.2 % (42.0-52.0); HEMOGLOBIN. 10.1 g/dL (14.0-18.0); LYMPHOCYTES % 9.9 % (20.0-50.0); MEAN CORPUSCULAR HEMOGLOBIN 29.6 pg (28.0-32.0); MEAN CORPUSCULAR VOLUME 88.6 fL (80.0-94.0); MEAN PLATELET VOLUME 8.3 fl (7.4-10.4); MONOCYTES % 7.5 % (2.0-8.0); NEUTROPHILS % 72.6 % (40.0-76.0); PLATELET 198 x1000/uL (130-400); RED BLOOD CELL COUNT 3.41 mill/uL (4.7-6.1); RED CELL DISTRIBUTION WIDTH 14.2 % (11.6-14.6)
[2019-11-22 20:53] LABS: CHLORIDE 114 mEq/L (98-107)
[2019-11-22 20:59] LABS: INR 1.1; PARTIAL THROMBOPLASTIN TIME 30.8 sec (23.4-31.0); PROTHROMBIN TIME 11.9 sec (9.6-11.0)
[2019-11-22] MEDS ORDERED: CEFTRIAXONE 1 G PREMIX 50 ML IV ONE (21:00)
[2019-11-22] MEDS ORDERED: AZITHROMYCIN 500 MG in DEXT 5% WATER 250 ML IV ONE (21:00)
[2019-11-22] MEDS ORDERED: SODIUM POLYSTYRENE SULFONATE 15 G/60 ML BOT PO ONE (21:30)
[2019-11-22] MEDS ORDERED: INSULIN REGULAR (HUMULIN R) 300UNITS/3ML IV ONE (21:30)
[2019-11-22] MEDS ORDERED: DEXTROSE 50% WATER 50ML SYRINGE IV ONE (21:30)
[2019-11-22] MEDS ORDERED: ALBUTEROL (0.083%) 2.5MG/3ML NEB HHN ONE (21:30)
[2019-11-22] MEDS ORDERED: SODIUM BICARBONATE 8.4% 1 MEQ/ML 50ML SYR IV ONE (21:30)
[2019-11-22 23:55] VITALS: BP 107/68
[2019-11-23] VITALS: BP 107/68
[2019-11-23] MEDS ORDERED: DEXTROSE 50% WATER 50ML SYRINGE IV PRN (02:15)
[2019-11-23] MEDS ORDERED: ALBUTEROL 6.7GM HFA INHALER ORI PRN (02:15)
[2019-11-23] MEDS ORDERED: CEFTRIAXONE 1 G PREMIX 50 ML IV SCH (02:15)
[2019-11-23 03:16] LABS: CLARITY URINE CLEAR (CLEAR); COLOR URINE YELLOW (YELLOW); KETONES URINE NEGATIVE (NEGATIVE); LEUKOCYTE ESTERASE URINE NEGATIVE (NEGATIVE); NITRITE URINE NEGATIVE (NEGATIVE); OCCULT BLOOD URINE NEGATIVE (NEGATIVE); PROTEIN URINE 2+ (NEGATIVE); SPECIFIC GRAVITY URINE 1.016 (1.005-1.030); UROBILINOGEN URINE 0.2 E.U./dL (0.2-1.0)
[2019-11-23 04:00] VITALS: BP 104/71
[2019-11-23] MEDS ORDERED: CARV25TA47 PO (05:34)
[2019-11-23] MEDS ORDERED: NIFE-32 PO (05:39)
[2019-11-23] MEDS ORDERED: FURO20TA4 PO (05:39)
[2019-11-23] MEDS ORDERED: TAMS-11 PO (05:39)
[2019-11-23] MEDS ORDERED: QUET50TA21 PO (05:39)
[2019-11-23] MEDS ORDERED: HYDR-4134 PO (05:39)
[2019-11-23] MEDS ORDERED: PANT40TA4 PO (05:39)
[2019-11-23] MEDS ORDERED: ATOR-2 PO (05:39)
[2019-11-23] MEDS ORDERED: LOSA50TA41 PO (05:39)
[2019-11-23] MEDS: ALBUTEROL 6.7GM HFA INHALER ORI SCH ×5 (06:00→21:25)
[2019-11-23] MEDS: INSULIN LISPRO 100 UNITS/ML SUBCUT SCH ×4 (07:56→21:53)
[2019-11-23] MEDS: BLOOD SUGAR DIAGNOSTIC STRIP TEST SCH ×4 (07:56→21:02)
[2019-11-23 07:59] LABS: BASOPHILS % 0.9 % (0.0-2.0); HEMOGLOBIN. 9.4 g/dL (14.0-18.0); LYMPHOCYTES % 11.3 % (20.0-50.0); MEAN CORPUSCULAR HEMOGLOBIN 29.6 pg (28.0-32.0); MEAN CORPUSCULAR VOLUME 88.2 fL (80.0-94.0); MEAN PLATELET VOLUME 8.1 fl (7.4-10.4); MONOCYTES % 8.5 % (2.0-8.0); NEUTROPHILS % 69.3 % (40.0-76.0); PLATELET 167 x1000/uL (130-400); RED BLOOD CELL COUNT 3.17 mill/uL (4.7-6.1); RED CELL DISTRIBUTION WIDTH 14.5 % (11.6-14.6)
[2019-11-23 08:00] VITALS: BP 154/80
[2019-11-23] MEDS: ENOXAPARIN 30MG/0.3ML SYR SUBCUT SCH (09:00)
[2019-11-23] MEDS ORDERED: ASPIRIN 81MG TABLET PO SCH (09:00)
[2019-11-23] MEDS ORDERED: DEXAMETHASONE 10 MG/ML VIAL IV SCH (09:00)
[2019-11-23] MEDS: CARVEDILOL 12.5MG TABLET PO SCH ×2 (09:00→21:39)
[2019-11-23] MEDS ORDERED: ENOXAPARIN 60MG/0.6ML SYR SUBCUT SCH (09:00)
[2019-11-23] MEDS ORDERED: FUROSEMIDE 40MG TABLET PO SCH (09:00)
[2019-11-23 12:00] VITALS: BP 170/90
[2019-11-23] MEDS ORDERED: NON FORMULARY PATIENT HOME MED XX SCH (14:45)
[2019-11-23] MEDS: FUROSEMIDE 40MG/4ML VIAL IVP SCH (15:30)
[2019-11-23 16:00] VITALS: BP 180/95
[2019-11-23] MEDS: FLUTICASONE FUROATE 100 1 INH/CAP ORI SCH (17:23)
[2019-11-23 20:00] VITALS: BP 185/98
[2019-11-23] MEDS: CEFTRIAXONE 1,000 MG in DEXTROSE 5% WATER 50 ML IV SCH (20:27)
[2019-11-23] MEDS: CLONIDINE 0.1MG TABLET PO PRN (21:38)
[2019-11-23] MEDS: AZITHROMYCIN 500 MG in DEXT 5% WATER 250 ML IV SCH (21:39)
[2019-11-24] VITALS: BP 191/98
[2019-11-24] MEDS: ALBUTEROL 6.7GM HFA INHALER ORI SCH ×5 (02:00→21:15)
[2019-11-24 04:00] VITALS: BP 189/94
[2019-11-24] MEDS: CLONIDINE 0.1MG TABLET PO PRN (04:38)
[2019-11-24 08:00] VITALS: BP 205/94
[2019-11-24] MEDS: BLOOD SUGAR DIAGNOSTIC STRIP TEST SCH ×4 (08:10→21:00)
[2019-11-24] MEDS: INSULIN LISPRO 100 UNITS/ML SUBCUT SCH ×4 (08:11→21:00)
[2019-11-24] MEDS: FUROSEMIDE 40MG/4ML VIAL IVP SCH (08:12)
[2019-11-24] MEDS: ENOXAPARIN 30MG/0.3ML SYR SUBCUT SCH (08:14)
[2019-11-24] MEDS: CLONIDINE 0.2MG TABLET PO PRN ×2 (08:14→14:48)
[2019-11-24] MEDS: CARVEDILOL 12.5MG TABLET PO SCH ×2 (08:14→23:31)
[2019-11-24] MEDS: FLUTICASONE FUROATE 100 1 INH/CAP ORI SCH ×2 (08:17→18:41)
[2019-11-24 12:00] VITALS: BP 197/105
[2019-11-24] MEDS ORDERED: HYDRALAZINE HCL 100MG TABLET PO SCH (12:30)
[2019-11-24] MEDS: HYDRALAZINE HCL 100MG TABLET PO SCH ×2 (14:43→23:31)
[2019-11-24 16:00] VITALS: BP 190/94
[2019-11-24 20:00] VITALS: BP 198/86
[2019-11-24] MEDS: AZITHROMYCIN 500 MG in DEXT 5% WATER 250 ML IV SCH (23:30)
[2019-11-24] MEDS: CEFTRIAXONE 1,000 MG in DEXTROSE 5% WATER 50 ML IV SCH (23:30)
[2019-11-25] VITALS (9 sets, daily range): BP systolic 125–201; BP diastolic 56–93
[2019-11-25] MEDS: ALBUTEROL (0.083%) 2.5MG/3ML NEB HHN SCH ×3 (02:14→12:17)
[2019-11-25] MEDS: CLONIDINE 0.2MG TABLET PO PRN (04:26)
[2019-11-25] MEDS: HYDRALAZINE HCL 100MG TABLET PO SCH ×2 (05:15→15:18)
[2019-11-25] MEDS: BLOOD SUGAR DIAGNOSTIC STRIP TEST SCH ×3 (06:06→16:45)
[2019-11-25] MEDS: INSULIN LISPRO 100 UNITS/ML SUBCUT SCH ×3 (06:06→18:18)
[2019-11-25] MEDS: FUROSEMIDE 40MG/4ML VIAL IVP SCH (08:55)
[2019-11-25] MEDS: FLUTICASONE FUROATE 100 1 INH/CAP ORI SCH ×2 (08:55→18:17)
[2019-11-25] MEDS: ENOXAPARIN 30MG/0.3ML SYR SUBCUT SCH (08:56)
[2019-11-25] MEDS: CARVEDILOL 12.5MG TABLET PO SCH (08:57)
[2019-11-25] MEDS ORDERED: NIFEDIPINE XL 60MG TAB PO SCH (12:15)
[2019-11-25] MEDS ORDERED: NIFE-32 PO (13:12)
[2019-11-25] MEDS ORDERED: COR12 PO (13:12)
[2019-11-25] MEDS ORDERED: FURO-151 MT (13:12)
[2019-11-25] MEDS ORDERED: ALBU18HF2 IH (13:12)
[2019-11-25] MEDS ORDERED: HYDR100T26 PO (13:12)
[2019-11-25] MEDS ORDERED: MINOXIDIL 2.5MG TABLET PO SCH (14:45)
== END 2019-11-25 20:10 | disposition home or self-care (01) | DRG 720 ==
LOC: ER 19:45 → 7WST 21:31 → EDBEDREQ 21:33 → EDBEDREQTM 21:33 → ENRESERV 22:01 → 5WST 11-24 20:47
PROVIDERS: ADMIT Internal Medicine; ATTEND Internal Medicine
DX: A41.9 Sepsis, unspecified organism (principal); J96.00 Acute respiratory failure, unspecified whether with hypoxia or hypercapnia; N17.0 Acute kidney failure with tubular necrosis; I50.33 Acute on chronic diastolic (congestive) heart failure; J18.9 Pneumonia, unspecified organism; E44.1 Mild protein-calorie malnutrition; D64.9 Anemia, unspecified; E66.9 Obesity, unspecified; E87.5 Hyperkalemia; E87.8 Other disorders of electrolyte and fluid balance, not elsewhere classified; I25.10 Atherosclerotic heart disease of native coronary artery without angina pectoris; D72.810 Lymphocytopenia; E11.22 Type 2 diabetes mellitus with diabetic chronic kidney disease; I13.0 Hypertensive heart and chronic kidney disease with heart failure and stage 1 through stage 4 chronic kidney disease, or unspecified chronic kidney disease; J44.0 Chronic obstructive pulmonary disease with (acute) lower respiratory infection; K76.0 Fatty (change of) liver, not elsewhere classified; N18.9 Chronic kidney disease, unspecified; F17.210 Nicotine dependence, cigarettes, uncomplicated; Z20.828 Contact with and (suspected) exposure to other viral communicable diseases; Z79.82 Long term (current) use of aspirin; Z68.32 Body mass index [BMI] 32.0-32.9, adult; Z79.899 Other long term (current) drug therapy; Z71.3 Dietary counseling and surveillance; Z71.6 Tobacco abuse counseling
CPT/HCPCS: 36415; 71045; 74176; 80048; 80053; 80061; 81003; 82962; 83036; 83605; 83880; 84484; 85025; 87635; 93005; 93306; 94640; 96365; 99285; J0456; J0696; J1100; J1650; J1815; J1940; J3490; J7060

== ENCOUNTER 2020-06-28 18:58 | Inpatient (IN) | payer MEDICAID ==
[~2020-06-28] VITALS: Ht 170.2 cm; Wt 83.1 kg
[~2020-06-28 18:58] MED LIST changes: +ALBU18HF2 IH; -AMLO10TA80 PO; -ASPI-1158 MT; +ASPI-1406 MT; +ATOR-2 PO; -BUME2TAB7 MT; +CARV25TA47 PO; +FURO-151 MT; +HYDR100T26 PO; -LISI-604 MT; +LOSA50TA41 PO; +NIFE-32 PO; +PANT40TA51 PO; +QUET50TA21 PO; +TAMS-11 PO
[2020-06-28 20:49] LABS: BASOPHILS % 1.3 % (0.0-2.0); EOSINOPHILS % 6.8 % (0.0-5.0); HEMATOCRIT. 29.6 % (42.0-52.0); LYMPHOCYTES % 9.8 % (20.0-50.0); MEAN CORPUSCULAR HEMOGLOBIN 29.9 pg (28.0-32.0); MEAN PLATELET VOLUME 8.2 fl (7.4-10.4); NEUTROPHILS % 76.1 % (40.0-76.0); PLATELET 143 x1000/uL (130-400); RED BLOOD CELL COUNT 3.33 mill/uL (4.7-6.1); RED CELL DISTRIBUTION WIDTH 15.6 % (11.6-14.6)
[2020-06-28 21:08] LABS: CHLORIDE 110 mEq/L (98-107)
[2020-06-28] MEDS ORDERED: FUROSEMIDE 40MG/4ML VIAL IVP NR (23:30)
[2020-06-29 08:30] VITALS: BP 166/78
[2020-06-29] MEDS ORDERED: ACETAMINOPHEN 325MG TABLET PO PRN (08:45)
[2020-06-29] MEDS ORDERED: ONDANSETRON HCL 4MG/2ML INJ IV PRN (08:45)
[2020-06-29 09:00] VITALS: BP 166/79
[2020-06-29 12:00] VITALS: BP 170/85
[2020-06-29] MEDS: FUROSEMIDE 40MG/4ML VIAL IVP SCH (12:01)
[2020-06-29 16:00] VITALS: BP 155/85
[2020-06-29] MEDS ORDERED: HYDRALAZINE HCL 100MG TABLET PO NR (17:30)
[2020-06-29] MEDS: NIFEDIPINE XL 60MG TAB PO SCH (18:59)
[2020-06-29] MEDS: TAMSULOSIN HCL 0.4MG SR CAPSULE PO SCH (18:59)
[2020-06-29 19:26] VITALS: BP 170/84
[2020-06-29 20:00] VITALS: BP 167/83
[2020-06-30 00:39] VITALS: BP 142/78
[2020-06-30 04:00] VITALS: BP 126/64
[2020-06-30 06:57] LABS: BASOPHILS % 1.2 % (0.0-2.0); EOSINOPHILS % 7.7 % (0.0-5.0); HEMATOCRIT. 27.8 % (42.0-52.0); HEMOGLOBIN. 9.4 g/dL (14.0-18.0); LYMPHOCYTES % 10.1 % (20.0-50.0); MEAN CORPUSCULAR HEMOGLOBIN 30.2 pg (28.0-32.0); MEAN CORPUSCULAR VOLUME 89.3 fL (80.0-94.0); MEAN PLATELET VOLUME 8.4 fl (7.4-10.4); MONOCYTES % 7.8 % (2.0-8.0); NEUTROPHILS % 73.2 % (40.0-76.0); PLATELET 144 x1000/uL (130-400); RED BLOOD CELL COUNT 3.11 mill/uL (4.7-6.1); RED CELL DISTRIBUTION WIDTH 15.6 % (11.6-14.6)
[2020-06-30] MEDS: TAMSULOSIN HCL 0.4MG SR CAPSULE PO SCH (09:00)
[2020-06-30] MEDS: FUROSEMIDE 40MG/4ML VIAL IVP SCH (09:27)
[2020-06-30] MEDS: NIFEDIPINE XL 60MG TAB PO SCH ×2 (09:28→09:29)
[2020-06-30] MEDS: ASPIRIN 81MG TABLET PO SCH (09:28)
[2020-06-30] MEDS: HYDRALAZINE HCL 100MG TABLET PO SCH ×2 (09:35→21:36)
[2020-06-30 11:26] VITALS: BP 137/72
[2020-06-30 16:00] VITALS: BP 122/74
[2020-06-30 16:44] LABS: BG BASE EXCESS -1.6 mmol/L (-2.0-2.0); BG CARBOXYHEMOGLOBIN 0.3 % (0.5-1.5); BG DEOXYHEMOGLOBIN 5.9 % (0.0-5.0); BG FRACTION INSPIRED OXYGEN 21; BG HCO3 ACT 21.9 mmol/L (22.0-26.0); BG METHEMOGLOBIN 0.2 % (0.0-1.5); BG OXYGEN SATURATION 94.1 % (92.0-98.5); BG OXYHEMOGLOBIN 93.6 % (94.0-97.0); BG PCO2 32.5 mmHg (35.0-45.0); BG PH 7.446 (7.350-7.450); BG PO2 70.7 mmHg (75.0-100.0); BG SAMPLE SITE RIGHT BRACHIAL; BG VENT MODE ROOM AIR
[2020-06-30] MEDS ORDERED: FURO-151 MT (16:45)
[2020-06-30] MEDS ORDERED: ALBU18HF2 IH (16:45)
[2020-06-30 18:20] LABS: HEPATITIS B SURFACE ANTIGEN NEGATIVE
[2020-06-30 20:00] VITALS: BP 136/69
[2020-06-30 23:26] LABS: CLARITY URINE CLEAR (CLEAR); COLOR URINE YELLOW (YELLOW); KETONES URINE NEGATIVE (NEGATIVE); LEUKOCYTE ESTERASE URINE NEGATIVE (NEGATIVE); NITRITE URINE NEGATIVE (NEGATIVE); OCCULT BLOOD URINE NEGATIVE (NEGATIVE); PROTEIN URINE 3+ (NEGATIVE); SPECIFIC GRAVITY URINE 1.016 (1.005-1.030); UROBILINOGEN URINE 0.2 E.U./dL (0.2-1.0)
[2020-07-01] VITALS: BP 139/69
[2020-07-01 00:31] LABS: EOSINOPHILS % 7.4 % (0.0-5.0); HEMATOCRIT. 26.8 % (42.0-52.0); HEMOGLOBIN. 9.1 g/dL (14.0-18.0); LYMPHOCYTES % 10.5 % (20.0-50.0); MEAN CORPUSCULAR HEMOGLOBIN 30.2 pg (28.0-32.0); MEAN CORPUSCULAR VOLUME 89.1 fL (80.0-94.0); MEAN PLATELET VOLUME 8.2 fl (7.4-10.4); MONOCYTES % 7.5 % (2.0-8.0); NEUTROPHILS % 73.6 % (40.0-76.0); PLATELET 146 x1000/uL (130-400); RED BLOOD CELL COUNT 3.01 mill/uL (4.7-6.1); RED CELL DISTRIBUTION WIDTH 15.5 % (11.6-14.6)
[2020-07-01 04:00] VITALS: BP 137/72
[2020-07-01 08:00] VITALS: BP 140/78
[2020-07-01] MEDS: ASPIRIN 81MG TABLET PO SCH (09:26)
[2020-07-01] MEDS: FUROSEMIDE 40MG/4ML VIAL IVP SCH (09:26)
[2020-07-01] MEDS: TAMSULOSIN HCL 0.4MG SR CAPSULE PO SCH (09:27)
[2020-07-01] MEDS: HYDRALAZINE HCL 100MG TABLET PO SCH (09:27)
[2020-07-01 13:06] VITALS: BP 156/72
[2020-07-02 09:06] LABS: IMMUNOGLOBULIN A 433 mg/dL (61-437); IMMUNOGLOBULIN G 1208 mg/dL (603-1613); IMMUNOGLOBULIN M 44 mg/dL (20-172)
[2020-07-04 09:10] LABS: A/G RATIO 0.9 (0.7-1.7); ALBUMIN 2.8 g/dL (2.9-4.4); ALPHA-1-GLOBULIN 0.3 g/dL (0.0-0.4); ALPHA-2-GLOBULIN 0.6 g/dL (0.4-1.0); BETA GLOBULIN 1.1 g/dL (0.7-1.3); GAMMA GLOBULINS 1.1 g/dL (0.4-1.8); GLOBULIN TOTAL 3.2 g/dL (2.2-3.9); M-SPIKE Not Observed g/dL (Not Observed)
== END 2020-07-01 13:37 | disposition home or self-care (01) | DRG 194 ==
LOC: ER 18:58 → 6WST 06-29 02:40 → ENRESERV 06-29 07:25
PROVIDERS: ADMIT Internal Medicine; ATTEND Internal Medicine
DX: I13.0 Hypertensive heart and chronic kidney disease with heart failure and stage 1 through stage 4 chronic kidney disease, or unspecified chronic kidney disease (principal); N17.9 Acute kidney failure, unspecified; I50.9 Heart failure, unspecified; N18.4 Chronic kidney disease, stage 4 (severe); E11.22 Type 2 diabetes mellitus with diabetic chronic kidney disease; N18.9 Chronic kidney disease, unspecified; D64.9 Anemia, unspecified; E87.8 Other disorders of electrolyte and fluid balance, not elsewhere classified; E44.1 Mild protein-calorie malnutrition; E11.319 Type 2 diabetes mellitus with unspecified diabetic retinopathy without macular edema; J98.11 Atelectasis; E66.9 Obesity, unspecified; Z79.82 Long term (current) use of aspirin; Z79.899 Other long term (current) drug therapy; Z86.73 Personal history of transient ischemic attack (TIA), and cerebral infarction without residual deficits; Z68.28 Body mass index [BMI] 28.0-28.9, adult; Z87.891 Personal history of nicotine dependence
CPT/HCPCS: 36415; 36600; 71045; 76700; 78582; 80048; 80053; 81003; 82375; 82784; 82805; 82962; 83036; 83880; 84155; 84165; 84484; 85025; 85379; 86334; 86803; 87340; 93005; 94618; 97162; 99285; A9558; J1940

== ENCOUNTER 2021-06-09 10:30 | Inpatient (IN) | payer MEDICARE, MEDICAID ==
[~2021-06-09] VITALS: Ht 170.2 cm; Wt 83.5 kg
[~2021-06-09 10:30] MED LIST changes: -COR12 PO; -FURO40TA5 MT; -HYDR100T26 PO; -METF-416 MT; -NIFE-32 PO; -QUET50TA21 PO; -TAMS-11 PO
[2021-06-09] MEDS ORDERED: MORPHINE SULFATE 4 MG/ML CPJ (NOT FOR IM USE) IV STA (10:59)
[2021-06-09] MEDS ORDERED: ONDANSETRON HCL 4MG/2ML INJ IV STA (10:59)
[2021-06-09 11:47] LABS: BASOPHILS % 0.7 % (0.0-2.0); CHLORIDE 99 mEq/L (98-107); EOSINOPHILS % 6.4 % (0.0-5.0); HEMATOCRIT. 35.4 % (42.0-52.0); HEMOGLOBIN. 12.1 g/dL (14.0-18.0); LYMPHOCYTES % 8.7 % (20.0-50.0); MEAN CORPUSCULAR HEMOGLOBIN 29.5 pg (28.0-32.0); MONOCYTES % 7.7 % (2.0-8.0); NEUTROPHILS % 76.5 % (40.0-76.0); PLATELET 222 x1000/uL (130-400); RED BLOOD CELL COUNT 4.12 mill/uL (4.7-6.1); RED CELL DISTRIBUTION WIDTH 13.5 % (11.6-14.6)
[2021-06-09] MEDS: LOSARTAN POTASSIUM 100 MG TABLET PO SCH (16:57)
[2021-06-09] MEDS: CARVEDILOL 12.5MG TABLET PO SCH (16:57)
[2021-06-09] MEDS ORDERED: DEXTROSE 50% WATER 50ML SYRINGE IV PRN ×2 (18:00)
[2021-06-09] MEDS ORDERED: MAGNESIUM/ALUMINUM HYDROXIDE/SIMETHICONE 30ML UDC PO PRN (18:00)
[2021-06-09] MEDS ORDERED: ONDANSETRON HCL 4MG/2ML INJ IV PRN (18:00)
[2021-06-09] MEDS ORDERED: CLONIDINE 0.1MG TABLET PO PRN (18:00)
[2021-06-09] MEDS ORDERED: HYDROCODONE/ACETAMINOPHEN 5/325MG TABLET PO PRN (18:00)
[2021-06-09 18:13] VITALS: BP 168/83
[2021-06-09 18:22] VITALS: BP 168/83
[2021-06-09] MEDS: ACETAMINOPHEN 325MG TABLET PO PRN (18:41)
[2021-06-09] MEDS ORDERED: ENOXAPARIN 30MG/0.3ML SYR SUBCUT SCH (19:00)
[2021-06-09] MEDS ORDERED: TORS20TA4 PO (19:29)
[2021-06-09] MEDS ORDERED: APIX5TAB PO (19:29)
[2021-06-09 20:00] VITALS: BP 152/79
[2021-06-09] MEDS ORDERED: VANCOMYCIN 1GM PMX (XELLIA) 200 ML IV NR (20:00)
[2021-06-09] MEDS: BLOOD SUGAR DIAGNOSTIC STRIP TEST SCH (20:18)
[2021-06-09] MEDS: INSULIN LISPRO 100 UNITS/ML SUBCUT SCH (20:18)
[2021-06-09] MEDS: ATORVASTATIN CALCIUM 40MG TABLET PO SCH (20:58)
[2021-06-09] MEDS: ENOXAPARIN 30MG/0.3ML SYR SUBCUT SCH (20:59)
[2021-06-09] MEDS ORDERED: TERA2CAP4 PO (21:58)
[2021-06-09] MEDS ORDERED: HYDR-4001 PO (21:58)
[2021-06-10] VITALS: BP 131/77
[2021-06-10] MEDS: PIPERACILLIN/TAZOBACTAM 3.375 G in DEXTROSE 5% WATER 50 ML IV SCH ×3 (01:33→21:25)
[2021-06-10 04:00] VITALS: BP 150/84
[2021-06-10] MEDS: BLOOD SUGAR DIAGNOSTIC STRIP TEST SCH ×3 (06:33→16:38)
[2021-06-10] MEDS: INSULIN LISPRO 100 UNITS/ML SUBCUT SCH ×4 (07:25→21:00)
[2021-06-10] MEDS ORDERED: HYDROCODONE/ACETAMINOPHEN 10/325MG TABLET PO PRN (07:45)
[2021-06-10] MEDS ORDERED: MORPHINE SULFATE 2 MG/ML CPJ (NOT FOR IM USE) IV SCH (07:45)
[2021-06-10 08:00] VITALS: BP 152/81
[2021-06-10] MEDS ORDERED: NALOXONE HCL 0.4MG/ML VIAL IV PRN (08:00)
[2021-06-10] MEDS: CARVEDILOL 12.5MG TABLET PO SCH ×2 (08:23→21:25)
[2021-06-10] MEDS: ASPIRIN 81MG EC TABLET PO SCH (08:23)
[2021-06-10] MEDS: LOSARTAN POTASSIUM 100 MG TABLET PO SCH (08:23)
[2021-06-10] MEDS ORDERED: VANCOMYCIN 500MG PREMIX 100 ML IV NR (09:30)
[2021-06-10 11:13] LABS: BASOPHILS % 1.6 % (0.0-2.0); HEMATOCRIT. 32.5 % (42.0-52.0); HEMOGLOBIN. 10.8 g/dL (14.0-18.0); LYMPHOCYTES % 7.2 % (20.0-50.0); MEAN CORPUSCULAR HEMOGLOBIN 29.1 pg (28.0-32.0); MEAN CORPUSCULAR VOLUME 87.5 fL (80.0-94.0); MEAN PLATELET VOLUME 7.8 fl (7.4-10.4); MONOCYTES % 10.5 % (2.0-8.0); NEUTROPHILS % 72.7 % (40.0-76.0); PLATELET 181 x1000/uL (130-400); RED BLOOD CELL COUNT 3.71 mill/uL (4.7-6.1); RED CELL DISTRIBUTION WIDTH 13.8 % (11.6-14.6)
[2021-06-10 11:56] LABS: PHOSPHORUS 4.2 mg/dL (2.5-4.9)
[2021-06-10 12:00] VITALS: BP 135/79
[2021-06-10 12:05] LABS: T4 FREE 1.46 ng/dL (0.76-1.46)
[2021-06-10] MEDS: ACETAMINOPHEN 325MG TABLET PO PRN ×2 (12:24→16:33)
[2021-06-10] MEDS: ACYCLOVIR INJ 500 MG in DEXT 5% WATER 100 ML IV SCH (12:24)
[2021-06-10] MEDS: GABAPENTIN 100MG CAPSULE PO SCH ×2 (13:13→21:25)
[2021-06-10 16:15] VITALS: BP 138/67
[2021-06-10 20:28] VITALS: BP 164/62
[2021-06-10] MEDS: ENOXAPARIN 30MG/0.3ML SYR SUBCUT SCH (21:25)
[2021-06-10] MEDS: ATORVASTATIN CALCIUM 40MG TABLET PO SCH (21:25)
[2021-06-11] VITALS: BP 144/78
[2021-06-11 04:00] VITALS: BP 151/79
[2021-06-11] MEDS: GABAPENTIN 100MG CAPSULE PO SCH ×3 (05:52→20:55)
[2021-06-11 06:16] LABS: HEMATOCRIT. 31.8 % (42.0-52.0); HEMOGLOBIN. 10.7 g/dL (14.0-18.0); MEAN CORPUSCULAR HEMOGLOBIN 29.4 pg (28.0-32.0); MEAN CORPUSCULAR VOLUME 87.7 fL (80.0-94.0); MEAN PLATELET VOLUME 7.7 fl (7.4-10.4); PLATELET 165 x1000/uL (130-400); RED BLOOD CELL COUNT 3.63 mill/uL (4.7-6.1); RED CELL DISTRIBUTION WIDTH 13.6 % (11.6-14.6)
[2021-06-11 07:12] LABS: PHOSPHORUS 5.7 mg/dL (2.5-4.9)
[2021-06-11] MEDS: INSULIN LISPRO 100 UNITS/ML SUBCUT SCH ×4 (07:12→20:54)
[2021-06-11] MEDS: BLOOD SUGAR DIAGNOSTIC STRIP TEST SCH ×4 (07:12→20:56)
[2021-06-11 08:17] VITALS: BP 125/74
[2021-06-11] MEDS: ASPIRIN 81MG EC TABLET PO SCH (08:20)
[2021-06-11] MEDS: LOSARTAN POTASSIUM 100 MG TABLET PO SCH (08:20)
[2021-06-11] MEDS: CARVEDILOL 12.5MG TABLET PO SCH ×2 (08:20→20:55)
[2021-06-11] MEDS: PIPERACILLIN/TAZOBACTAM 3.375 G in DEXTROSE 5% WATER 50 ML IV SCH ×2 (08:21→20:54)
[2021-06-11 10:53] LABS: PLATELET ESTIMATE NORMAL
[2021-06-11 12:15] VITALS: BP 136/79
[2021-06-11 16:00] VITALS: BP 154/68
[2021-06-11] MEDS: ACYCLOVIR INJ 500 MG in DEXT 5% WATER 100 ML IV SCH (17:42)
[2021-06-11 20:00] VITALS: BP 149/70
[2021-06-11] MEDS: ACETAMINOPHEN 325MG TABLET PO PRN (20:55)
[2021-06-11] MEDS: ATORVASTATIN CALCIUM 40MG TABLET PO SCH (20:55)
[2021-06-11] MEDS: ENOXAPARIN 30MG/0.3ML SYR SUBCUT SCH (20:56)
[2021-06-12] VITALS (7 sets, daily range): BP systolic 126–156; BP diastolic 74–87
[2021-06-12] MEDS: GABAPENTIN 100MG CAPSULE PO SCH ×2 (06:26→15:15)
[2021-06-12] MEDS: BLOOD SUGAR DIAGNOSTIC STRIP TEST SCH ×3 (06:26→16:56)
[2021-06-12] MEDS: INSULIN LISPRO 100 UNITS/ML SUBCUT SCH ×3 (07:44→17:22)
[2021-06-12] MEDS: CARVEDILOL 12.5MG TABLET PO SCH (08:36)
[2021-06-12] MEDS: LOSARTAN POTASSIUM 100 MG TABLET PO SCH (08:36)
[2021-06-12] MEDS: PIPERACILLIN/TAZOBACTAM 3.375 G in DEXTROSE 5% WATER 50 ML IV SCH (08:36)
[2021-06-12] MEDS: ACETAMINOPHEN 325MG TABLET PO PRN (08:37)
[2021-06-12] MEDS: ASPIRIN 81MG EC TABLET PO SCH (08:37)
[2021-06-12] MEDS: ACYCLOVIR INJ 500 MG in DEXT 5% WATER 100 ML IV SCH (12:47)
[2021-06-12] MEDS ORDERED: ACYC200C31 MT (17:19)
[2021-06-12] MEDS ORDERED: GABA-529 PO (17:19)
[2021-06-14 22:15] LABS: HEPATITIS B SURFACE ANTIGEN NEGATIVE
== END 2021-06-12 20:42 | disposition home or self-care (01) | DRG 595 ==
LOC: ER 10:47 → 6WST 15:34 → ENRESERV 16:02
PROVIDERS: ADMIT Internal Medicine; ATTEND Internal Medicine
PROC: 5A1D70Z Performance of Urinary Filtration, Intermittent, Less than 6 Hours Per Day (ICD-10-PCS; 2021-06-09)
PROC: 5A1D70Z Performance of Urinary Filtration, Intermittent, Less than 6 Hours Per Day (ICD-10-PCS; principal; 2021-06-12)
DX: B02.9 Zoster without complications (principal); N18.6 End stage renal disease; I13.2 Hypertensive heart and chronic kidney disease with heart failure and with stage 5 chronic kidney disease, or end stage renal disease; I69.354 Hemiplegia and hemiparesis following cerebral infarction affecting left non-dominant side; I50.9 Heart failure, unspecified; D64.9 Anemia, unspecified; E11.22 Type 2 diabetes mellitus with diabetic chronic kidney disease; E11.319 Type 2 diabetes mellitus with unspecified diabetic retinopathy without macular edema; E66.9 Obesity, unspecified; E78.5 Hyperlipidemia, unspecified; Z20.822 Contact with and (suspected) exposure to COVID-19; Z79.899 Other long term (current) drug therapy; Z87.891 Personal history of nicotine dependence; Z99.2 Dependence on renal dialysis; Z68.28 Body mass index [BMI] 28.0-28.9, adult; Z79.82 Long term (current) use of aspirin; Z87.01 Personal history of pneumonia (recurrent); Z84.89 Family history of other specified conditions
CPT/HCPCS: 36415; 71045; 80048; 80053; 80061; 80076; 80202; 82962; 83036; 83735; 84100; 84145; 84439; 84443; 84484; 85025; 86705; 86709; 86803; 87340; 87426; 93005; 93970; 99285; C1893; J0133; J1650; J1815; J2270; J2405; J2543; J3370; J7040; J7060

== ENCOUNTER 2022-01-05 17:53 | Emergency (ER) | payer MEDICARE, MEDICAID ==
[~2022-01-05] VITALS: Ht 172.7 cm; Wt 90.0 kg
[~2022-01-05 17:53] MED LIST changes: +ACYC200C31 MT; +APIX5TAB PO; +GABA-529 PO; +HYDR-4001 PO; +TERA2CAP4 PO; +TORS20TA4 PO
[2022-01-05 19:07] LABS: BASOPHILS % 0.9 % (0.0-2.0); EOSINOPHILS % 7.8 % (0.0-5.0); HEMATOCRIT. 39.6 % (42.0-52.0); HEMOGLOBIN. 13.4 g/dL (14.0-18.0); MEAN CORPUSCULAR VOLUME 94.7 fL (80.0-94.0); MEAN PLATELET VOLUME 6.9 fl (7.4-10.4); MONOCYTES % 6.3 % (2.0-8.0); PLATELET 225 x1000/uL (130-400); RED BLOOD CELL COUNT 4.18 mill/uL (4.7-6.1); RED CELL DISTRIBUTION WIDTH 16.2 % (11.6-14.6)
[2022-01-05 19:13] LABS: CHLORIDE 93 mEq/L (98-107)
[2022-01-06 08:00] VITALS: BP 136/76
== END 2022-01-06 08:31 | disposition home or self-care (01) ==
LOC: ER 17:53 → CANBEDREQ 01-06 10:41
DX: R53.1 Weakness (principal); R11.0 Nausea; R42 Dizziness and giddiness; I12.0 Hypertensive chronic kidney disease with stage 5 chronic kidney disease or end stage renal disease; E11.22 Type 2 diabetes mellitus with diabetic chronic kidney disease; N18.6 End stage renal disease; Z99.2 Dependence on renal dialysis; Z86.73 Personal history of transient ischemic attack (TIA), and cerebral infarction without residual deficits; Z79.899 Other long term (current) drug therapy
CPT/HCPCS: 36415; 71045; 74176; 80053; 83605; 84484; 85025; 93005; 99285